=== PATIENT | male | born 2000 | race Hispanic/Latino ===

== ENCOUNTER 2021-01-14 17:08 | Emergency (ER) | payer OTHER ==
[~2021-01-14] VITALS: Ht 182.9 cm; Wt 99.2 kg
[2021-01-14 17:09] VITALS: BP 134/96
[2021-01-14] MEDS ORDERED: IBUP200C25 PO (17:26)
[2021-01-14] MEDS ORDERED: diphenhydrAMINE 50MG/ML VIAL (J1200) IV STA (17:52)
[2021-01-14] MEDS ORDERED: KETOROLAC 30 MG/ML 1ML VIAL IV ONE (17:55)
[2021-01-14] MEDS ORDERED: METOCLOPRAMIDE INJ 10MG/2ML VIAL (J2765 PER 1) IV ONE (17:55)
[2021-01-14] MEDS ORDERED: NS 1,000 ML IV ONE (17:55)
[2021-01-14] MEDS ORDERED: AMOX500C PO (18:36)
[2021-01-14] MEDS ORDERED: AMOXICILLIN 500 MG CAP PO ONE (18:40)
== END 2021-01-14 19:02 | disposition home or self-care (01) ==
LOC: M ED 17:08
DX: J02.0 Streptococcal pharyngitis (principal); F17.290 Nicotine dependence, other tobacco product, uncomplicated
CPT/HCPCS: 87880; 96361; 96374; 96375; 99282; J1200; J1885; J2765